=== PATIENT | male | born 1935 | race Hispanic/Latino ===

== ENCOUNTER 2018-12-20 20:36 | Inpatient (IN) | payer OTHER | END 2018-12-27 20:37 | LOC: EDH 20:36 → EDHIP 22:55 → 4BH 12-21 07:59 → 2DH 12-24 17:50 | PROC: 0TJB8ZZ Inspection of Bladder, Via Natural or Artificial Opening Endoscopic (ICD-10-PCS; principal; 2018-12-25 12:25) | DX: A41.9 Sepsis, unspecified organism (principal); I50.21 Acute systolic (congestive) heart failure; J18.1 Lobar pneumonia, unspecified organism; J96.01 Acute respiratory failure with hypoxia; J15.1 Pneumonia due to Pseudomonas; I48.91 Unspecified atrial fibrillation; I10 Essential (primary) hypertension; E11.9 Type 2 diabetes mellitus without complications; E78.5 Hyperlipidemia, unspecified; I25.10 Atherosclerotic heart disease of native coronary artery without angina pectoris; I11.0 Hypertensive heart disease with heart failure ==

== ENCOUNTER → 2019-09-20 | Outpatient (CLI) | payer OTHER ==
[~2019-09-20] MED LIST: ALBU2.5V2 IH; ALBU6.7H9 IH; ATOR20TA PO; CHLO118L4 TP; DULO60CA44 PO; FLUC100T8 PO; FLUT1DIS4 IH; GABA-529 PO; INSU100I21 SQ; INSU100V12 SQ; LEVA0.316 IH; LEVO500T2 PO; LOSA100T2 PO; METO50 PO; RANI150C4 PO; TAMS-1 PO; TIOT18CA3 IH
== END | disposition home or self-care (01) ==
LOC: SHCH 12:51
PROVIDERS: ATTEND Internal Medicine Cardiovascular Disease
DX: I50.42 Chronic combined systolic (congestive) and diastolic (congestive) heart failure (principal)
CPT/HCPCS: 93306

== ENCOUNTER 2021-02-16 08:06 | Inpatient (IN) | payer OTHER ==
[~2021-02-16] VITALS: Ht 172.7 cm; Wt 75.5 kg
[~2021-02-16 08:06] MED LIST changes: -DULO60CA44 PO; +DULO60CA45 PO
[2021-02-16 08:25] LABS: BASOPHILS % (AUTO) 0.2 % (0.0-5.0); EOSINOPHILS % (AUTO) 0.1 % (0.0-8.0); HEMATOCRIT 35.2 % (42-54); LYMPHOCYTES % (AUTO) 4.1 % (21.0-51.0); MEAN CORPUSCULAR HEMOGLOBIN 29.8 pg (27.0-33.0); MEAN CORPUSCULAR HGB CONC 34.9 g/dL (32.0-36.0); MEAN CORPUSCULAR VOLUME 85.2 fL (79-99); MONOCYTES % (AUTO) 3.3 % (3.0-13.0); NEUTROPHILS % (AUTO) 91.7 % (40.0-77.0); PLATELET COUNT (AUTO) 187 K/uL (130-400); RED BLOOD CELL COUNT(AUTO) 4.13 MIL/uL (4.50-6.20); RED CELL DISTRIBUTION WIDTH 14.7 % (11.0-15.5); WHITE BLOOD COUNT (AUTO) 12.9 K/uL (4.8-10.8)
[2021-02-16] MEDS ORDERED: 0.9%NACL 1000ML 1,000 ML IV ONE (08:27)
[2021-02-16] MEDS ORDERED: ONDANSETRON 4MG INJ ONE ×2 (08:27→22:26)
[2021-02-16 08:40] LABS: ALBUMIN 3.9 g/dL (3.5-5.0); BILIRUBIN,TOTAL 1.1 mg/dL (0.2-1.0); CREATININE 1.1 mg/dL (0.5-1.5); POTASSIUM 3.6 mmol/L (3.5-5.1); TOTAL PROTEIN, SERUM 7.9 g/dL (6.0-8.3)
[2021-02-16 08:42] LABS: INR 1.05 (0.85-1.15); PROTHROMBIN TIME 11.4 SEC (9.6-11.6)
[2021-02-16 08:43] LABS: PARTIAL THROMBOPLASTIN TIME 24.5 SEC (26.3-35.5)
[2021-02-16 09:06] LABS: APPEARANCE,URINE Clear (CLEAR); BILIRUBIN,URINE Negative (NEGATIVE); COLOR,URINE Yellow (YELLOW); GLUCOSE, URINE (UA) >=1000 mg/dL (NEGATIVE); KETONES,URINE Trace mg/dL (NEGATIVE); LEUKOCYTE ESTERASE ,URINE Negative (NEGATIVE); NITRATE,URINE Negative (NEGATIVE); OCCULT BLOOD,URINE Moderate (NEGATIVE); PH,URINE 7.5 (5.0-8.0); PROTEIN,URINE POS 1+ mg/dL (NEGATIVE); UROBILINOGEN,URINE 0.2 mg/dL (0.2-1.0)
[2021-02-16 09:13] LABS: AMPHET/METH SCREEN,URINE NEGATIVE (NEGATIVE); BARBITURATE SCREEN, URINE NEGATIVE (NEGATIVE); BENZODIAZEPINES SCREEN,URINE NEGATIVE (NEGATIVE); CANNABINOID SCREEN,URINE NEGATIVE (NEGATIVE); COCAINE SCREEN,URINE NEGATIVE (NEGATIVE); OPIATE SCREEN,URINE NEGATIVE (NEGATIVE); PHENCYCLIDINE SCREEN,URINE NEGATIVE (NEGATIVE)
[2021-02-16 09:26] LABS: WBC,URINE 0-1 /HPF (0-1)
[2021-02-16 09:27] LABS: BACTERIA,URINE Moderate /HPF (None Seen); SQUAMOUS EPITHELIAL CELL,UR 0-2 /HPF (0-2)
[2021-02-16] MEDS ORDERED: IOHEXOL-350 75 ML VIAL IV ONE (09:57)
[2021-02-16] MEDS ORDERED: PROCHLORPERAZINE 10MG/2ML INJ ONE (11:28)
[2021-02-16] MEDS ORDERED: FAMOTIDINE 20MG VIAL IV ONE (11:28)
[2021-02-16] MEDS ORDERED: ACETAMINOPHEN 650MG ER TAB PO PRN (14:30)
[2021-02-16] MEDS ORDERED: LABETALOL 20MG SYG IV PRN (14:30)
[2021-02-16] MEDS ORDERED: CEFTRIAXONE 1G VIAL IVP SCH (14:45)
[2021-02-16] MEDS ORDERED: ACETAMINOPHEN 325 MG TAB PO PRN (15:00)
[2021-02-16] MEDS ORDERED: CEFTRIAXONE 1G VIAL ONE (16:11)
[2021-02-16] MEDS ORDERED: ASPIRIN 81MG CHEW TAB ONE (16:11)
[2021-02-16] MEDS ORDERED: 0.9%NACL 50ML 50 ML IV ONE (16:13)
[2021-02-16] MEDS: ATORVASTATIN 40 MG TABLET PO SCH (21:00)
[2021-02-16] MEDS: FAMOTIDINE 20MG VIAL IV SCH (21:00)
[2021-02-16] MEDS ORDERED: ACETAMINOPHEN 650 MG/20.3 ML UDCUP ONE (22:40)
[2021-02-16] MEDS ORDERED: LABETALOL 20MG VIAL IV ONE (22:49)
[2021-02-16] MEDS ORDERED: GLUCAGON 1MG KIT 1 MG ML IM PRN (23:30)
[2021-02-16] MEDS ORDERED: DEXTROSE 50%-WATER 50 ML DISP.SYRIN IV PRN (23:30)
[2021-02-17 06:19] LABS: BASOPHILS % (AUTO) 0.1 % (0.0-5.0); EOSINOPHILS % (AUTO) 0.1 % (0.0-8.0); HEMATOCRIT 31.6 % (42-54); LYMPHOCYTES % (AUTO) 5.2 % (21.0-51.0); MEAN CORPUSCULAR HEMOGLOBIN 29.8 pg (27.0-33.0); MEAN CORPUSCULAR HGB CONC 34.5 g/dL (32.0-36.0); MEAN CORPUSCULAR VOLUME 86.3 fL (79-99); MONOCYTES % (AUTO) 5.7 % (3.0-13.0); NEUTROPHILS % (AUTO) 88.4 % (40.0-77.0); PLATELET COUNT (AUTO) 185 K/uL (130-400); RED BLOOD CELL COUNT(AUTO) 3.66 MIL/uL (4.50-6.20); WHITE BLOOD COUNT (AUTO) 16.3 K/uL (4.8-10.8)
[2021-02-17 06:28] LABS: INR 1.09 (0.85-1.15); PROTHROMBIN TIME 11.8 SEC (9.6-11.6)
[2021-02-17 06:45] LABS: ALBUMIN 3.4 g/dL (3.5-5.0); BILIRUBIN,TOTAL 1.3 mg/dL (0.2-1.0); POTASSIUM 3.7 mmol/L (3.5-5.1); TOTAL PROTEIN, SERUM 6.9 g/dL (6.0-8.3); TROPONIN I 0.09 ng/mL (0.00-0.06)
[2021-02-17 06:52] LABS: HEMOGLOBIN A1C 8.6 % (4.0-6.0)
[2021-02-17] MEDS: INSULIN HUMULIN R 100 UNIT/ML 3ML SQ SCH ×4 (07:30→21:00)
[2021-02-17] MEDS ORDERED: PANTOPRAZOLE 40 MG/VIAL IVP SCH (08:15)
[2021-02-17] MEDS ORDERED: PANTOPRAZOLE 40MG INJ 80 MG in 0.9%NACL 100ML 100 ML IVP SCH (08:15)
[2021-02-17] MEDS ORDERED: ASPIRIN 81MG CHEW TAB PO SCH (09:00)
[2021-02-17] MEDS: FAMOTIDINE 20MG VIAL IV SCH ×2 (09:00→21:00)
[2021-02-17] MEDS ORDERED: ASPIRIN 81MG CHEW TAB ONE (09:12)
[2021-02-17] MEDS ORDERED: PANTOPRAZOLE 40 MG/VIAL ONE ×2 (09:12→18:53)
[2021-02-17] MEDS: METOPROLOL TARTRATE 50 MG TAB PO SCH ×2 (10:30→21:00)
[2021-02-17] MEDS ORDERED: ATORVASTATIN 40 MG TABLET ONE (10:31)
[2021-02-17] MEDS ORDERED: TAMSULOSIN HCL 0.4 MG CAP.ER.24H ONE (10:31)
[2021-02-17] MEDS ORDERED: FUROSEMIDE 40MG VIAL ONE (10:31)
[2021-02-17] MEDS ORDERED: LISINOPRIL 5 MG TABLET ONE (10:31)
[2021-02-17] MEDS ORDERED: 0.9%NACL 50ML 50 ML IV ONE (14:15)
[2021-02-17] MEDS ORDERED: CEFTRIAXONE 1G VIAL ONE (14:15)
[2021-02-17 14:22] LABS: HEMATOCRIT 29.8 % (42-54)
[2021-02-17] MEDS ORDERED: IPRATROPIUM/ALBUTEROL SULFATE 3 ML SOLUTION IH ONE ×2 (15:52→18:59)
[2021-02-17] MEDS: IPRATROPIUM/ALBUTEROL SULFATE 3 ML SOLUTION IH PRN ×2 (15:55→19:17)
[2021-02-17] MEDS ORDERED: INSULIN HUMULIN R 100 UNIT/ML 3ML ONE (17:19)
[2021-02-17] MEDS ORDERED: 0.9%NACL 100ML 100 ML IV ONE (18:53)
[2021-02-17] MEDS: ATORVASTATIN 40 MG TABLET PO SCH (21:00)
[2021-02-17] MEDS ORDERED: FAMOTIDINE 20MG VIAL IV ONE (21:49)
[2021-02-17 22:37] LABS: HEMATOCRIT 30.9 % (42-54)
[2021-02-18] VITALS (9 sets, daily range): BP systolic 99–154; BP diastolic 53–92
[2021-02-18 04:49] LABS: BASOPHILS % (AUTO) 0.1 % (0.0-5.0); EOSINOPHILS % (AUTO) 0.6 % (0.0-8.0); HEMATOCRIT 28.8 % (42-54); LYMPHOCYTES % (AUTO) 5.1 % (21.0-51.0); MEAN CORPUSCULAR HEMOGLOBIN 30.3 pg (27.0-33.0); MEAN CORPUSCULAR HGB CONC 34.7 g/dL (32.0-36.0); MEAN CORPUSCULAR VOLUME 87.3 fL (79-99); NEUTROPHILS % (AUTO) 85.8 % (40.0-77.0); PLATELET COUNT (AUTO) 163 K/uL (130-400); RED CELL DISTRIBUTION WIDTH 14.6 % (11.0-15.5); WHITE BLOOD COUNT (AUTO) 15.1 K/uL (4.8-10.8)
[2021-02-18] MEDS ORDERED: PANTOPRAZOLE 40 MG/VIAL ONE (04:53)
[2021-02-18] MEDS ORDERED: 0.9%NACL 100ML 100 ML IV ONE (04:54)
[2021-02-18 05:07] LABS: CREATININE 1.1 mg/dL (0.5-1.5); POTASSIUM 3.2 mmol/L (3.5-5.1)
[2021-02-18 05:18] LABS: BILIRUBIN,TOTAL 1.9 mg/dL (0.2-1.0); TOTAL PROTEIN, SERUM 6.5 g/dL (6.0-8.3); TROPONIN I 0.05 ng/mL (0.00-0.06)
[2021-02-18 05:52] LABS: INR 1.05 (0.85-1.15); PROTHROMBIN TIME 11.4 SEC (9.6-11.6)
[2021-02-18 05:53] LABS: PARTIAL THROMBOPLASTIN TIME 22.7 SEC (26.3-35.5)
[2021-02-18] MEDS: INSULIN HUMULIN R 100 UNIT/ML 3ML SQ SCH ×4 (07:30→21:24)
[2021-02-18] MEDS: METOPROLOL TARTRATE 50 MG TAB PO SCH ×2 (09:00→21:23)
[2021-02-18] MEDS: FAMOTIDINE 20MG VIAL IV SCH ×2 (09:00→21:00)
[2021-02-18] MEDS: TAMSULOSIN HCL 0.4 MG CAP.ER.24H PO SCH (09:00)
[2021-02-18] MEDS ORDERED: ASPIRIN 81MG CHEW TAB ONE (09:08)
[2021-02-18] MEDS ORDERED: METOPROLOL TARTRATE 50 MG TAB ONE (09:08)
[2021-02-18] MEDS ORDERED: TAMSULOSIN HCL 0.4 MG CAP.ER.24H ONE (09:09)
[2021-02-18] MEDS ORDERED: FAMOTIDINE 20MG VIAL IV ONE (09:09)
[2021-02-18] MEDS ORDERED: INSULIN HUMULIN R 100 UNIT/ML 3ML ONE (09:10)
[2021-02-18] MEDS: ZOSYN 3.375GM+NS 50ML 50 ML IV SCH ×2 (10:45→18:45)
[2021-02-18] MEDS: 0.9%NACL 1000ML 1,000 ML IV SCH ×2 (13:30→23:18)
[2021-02-18] MEDS: FUROSEMIDE 20 MG TABLET PO SCH (14:00)
[2021-02-18] MEDS ORDERED: ZOSYN 3.375GM+NS 50ML 50 ML IV ONE (14:10)
[2021-02-18] MEDS ORDERED: 0.9%NACL 1000ML 1,000 ML IV ONE (16:39)
[2021-02-18] MEDS ORDERED: FUROSEMIDE 40 MG TABLET ONE (16:40)
[2021-02-18] MEDS: ATORVASTATIN 40 MG TABLET PO SCH (21:23)
[2021-02-19] VITALS (15 sets, daily range): BP systolic 102–141; BP diastolic 50–91
[2021-02-19] MEDS: ZOSYN 3.375GM+NS 50ML 50 ML IV SCH ×3 (03:26→18:15)
[2021-02-19 04:04] LABS: HEMATOCRIT 30.9 % (42-54)
[2021-02-19 04:39] LABS: BASOPHILS % (AUTO) 0.1 % (0.0-5.0); EOSINOPHILS % (AUTO) 2.1 % (0.0-8.0); LYMPHOCYTES % (AUTO) 7.8 % (21.0-51.0); MEAN CORPUSCULAR HGB CONC 34.2 g/dL (32.0-36.0); MEAN CORPUSCULAR VOLUME 87.7 fL (79-99); MONOCYTES % (AUTO) 8.2 % (3.0-13.0); NEUTROPHILS % (AUTO) 81.4 % (40.0-77.0); PLATELET COUNT (AUTO) 192 K/uL (130-400); RED BLOOD CELL COUNT(AUTO) 3.57 MIL/uL (4.50-6.20); RED CELL DISTRIBUTION WIDTH 14.5 % (11.0-15.5); WHITE BLOOD COUNT (AUTO) 13.5 K/uL (4.8-10.8)
[2021-02-19 04:43] LABS: MAGNESIUM 2.3 mg/dL (1.80-2.40); POTASSIUM 3.5 mmol/L (3.5-5.1)
[2021-02-19] MEDS ORDERED: LIDOCAINE HCL-MPF 1% 2ML VIAL IJ PRN (05:00)
[2021-02-19] MEDS ORDERED: POTASSIUM CHLORIDE 20MEQ/100ML 100 ML IV PRN (05:00)
[2021-02-19] MEDS: INSULIN HUMULIN R 100 UNIT/ML 3ML SQ SCH ×4 (05:26→20:51)
[2021-02-19] MEDS: 0.9%NACL 1000ML 1,000 ML IV SCH (05:52)
[2021-02-19] MEDS: IPRATROPIUM/ALBUTEROL SULFATE 3 ML SOLUTION IH PRN (07:04)
[2021-02-19] MEDS: TAMSULOSIN HCL 0.4 MG CAP.ER.24H PO SCH (08:40)
[2021-02-19] MEDS: METOPROLOL TARTRATE 50 MG TAB PO SCH ×2 (08:40→20:53)
[2021-02-19] MEDS: FUROSEMIDE 20 MG TABLET PO SCH (08:41)
[2021-02-19] MEDS: POTASSIUM CHLORIDE 10% ELIXIR 20 MEQ/15 ML UDCUP PO PRN (08:41)
[2021-02-19] MEDS: PANTOPRAZOLE 40 MG/VIAL IVP SCH ×2 (14:12→20:51)
[2021-02-19] MEDS ORDERED: 0.9%NACL 1000ML 1,000 ML IV ONE (18:21)
[2021-02-19] MEDS: ATORVASTATIN 40 MG TABLET PO SCH (20:51)
[2021-02-20] VITALS (11 sets, daily range): BP systolic 107–151; BP diastolic 50–88
[2021-02-20] MEDS: ZOSYN 3.375GM+NS 50ML 50 ML IV SCH ×3 (02:09→18:15)
[2021-02-20 05:36] LABS: BASOPHILS % (AUTO) 0.3 % (0.0-5.0); EOSINOPHILS % (AUTO) 3.5 % (0.0-8.0); HEMATOCRIT 30.8 % (42-54); LYMPHOCYTES % (AUTO) 11.6 % (21.0-51.0); MEAN CORPUSCULAR HEMOGLOBIN 29.5 pg (27.0-33.0); MEAN CORPUSCULAR HGB CONC 33.8 g/dL (32.0-36.0); MEAN CORPUSCULAR VOLUME 87.5 fL (79-99); MONOCYTES % (AUTO) 9.2 % (3.0-13.0); PLATELET COUNT (AUTO) 180 K/uL (130-400); RED BLOOD CELL COUNT(AUTO) 3.52 MIL/uL (4.50-6.20); RED CELL DISTRIBUTION WIDTH 14.3 % (11.0-15.5)
[2021-02-20 05:49] LABS: POTASSIUM 3.2 mmol/L (3.5-5.1)
[2021-02-20 05:54] LABS: CREATININE 0.9 mg/dL (0.5-1.5)
[2021-02-20] MEDS: INSULIN HUMULIN R 100 UNIT/ML 3ML SQ SCH ×4 (06:01→21:14)
[2021-02-20] MEDS: POTASSIUM CHLORIDE 10% ELIXIR 20 MEQ/15 ML UDCUP PO PRN (06:05)
[2021-02-20] MEDS ORDERED: POTASSIUM CHLORIDE 10% ELIXIR 20 MEQ/15 ML UDCUP PO SCH (08:00)
[2021-02-20] MEDS: TAMSULOSIN HCL 0.4 MG CAP.ER.24H PO SCH (08:09)
[2021-02-20] MEDS: METOPROLOL TARTRATE 50 MG TAB PO SCH ×2 (08:09→21:11)
[2021-02-20] MEDS: FUROSEMIDE 20 MG TABLET PO SCH (08:09)
[2021-02-20] MEDS: PANTOPRAZOLE 40 MG/VIAL IVP SCH ×2 (08:10→21:10)
[2021-02-20] MEDS: ATORVASTATIN 40 MG TABLET PO SCH (21:10)
[2021-02-20] MEDS: IPRATROPIUM/ALBUTEROL SULFATE 3 ML SOLUTION IH PRN (23:22)
[2021-02-21] MEDS: ZOSYN 3.375GM+NS 50ML 50 ML IV SCH ×3 (02:59→17:46)
[2021-02-21 03:33] VITALS: BP 127/63
[2021-02-21] MEDS: INSULIN HUMULIN R 100 UNIT/ML 3ML SQ SCH ×4 (06:37→20:27)
[2021-02-21 06:41] LABS: BASOPHILS % (AUTO) 0.3 % (0.0-5.0); EOSINOPHILS % (AUTO) 2.9 % (0.0-8.0); HEMATOCRIT 31.6 % (42-54); MEAN CORPUSCULAR HEMOGLOBIN 29.1 pg (27.0-33.0); MEAN CORPUSCULAR HGB CONC 33.9 g/dL (32.0-36.0); MEAN CORPUSCULAR VOLUME 85.9 fL (79-99); MONOCYTES % (AUTO) 9.1 % (3.0-13.0); NEUTROPHILS % (AUTO) 73.3 % (40.0-77.0); PLATELET COUNT (AUTO) 185 K/uL (130-400); RED BLOOD CELL COUNT(AUTO) 3.68 MIL/uL (4.50-6.20); RED CELL DISTRIBUTION WIDTH 14.1 % (11.0-15.5)
[2021-02-21 06:50] LABS: CREATININE 0.8 mg/dL (0.5-1.5); MAGNESIUM 1.9 mg/dL (1.80-2.40); POTASSIUM 3.4 mmol/L (3.5-5.1)
[2021-02-21 07:20] VITALS: BP 136/106
[2021-02-21] MEDS: TAMSULOSIN HCL 0.4 MG CAP.ER.24H PO SCH (08:20)
[2021-02-21] MEDS: FUROSEMIDE 20 MG TABLET PO SCH (08:20)
[2021-02-21] MEDS: METOPROLOL TARTRATE 50 MG TAB PO SCH ×2 (08:20→20:19)
[2021-02-21] MEDS: PANTOPRAZOLE 40 MG/VIAL IVP SCH ×2 (08:21→20:19)
[2021-02-21] MEDS: POTASSIUM CHLORIDE 10% ELIXIR 20 MEQ/15 ML UDCUP PO PRN ×2 (09:00→12:26)
[2021-02-21 11:52] VITALS: BP 158/101
[2021-02-21 16:00] VITALS: BP 145/77
[2021-02-21] MEDS: ATORVASTATIN 40 MG TABLET PO SCH (20:19)
[2021-02-21 20:26] VITALS: BP 136/64
[2021-02-21 23:23] VITALS: BP 137/63
[2021-02-22] MEDS: ZOSYN 3.375GM+NS 50ML 50 ML IV SCH ×3 (03:05→18:32)
[2021-02-22 04:00] VITALS: BP 150/76
[2021-02-22 06:38] LABS: POTASSIUM 3.6 mmol/L (3.5-5.1)
[2021-02-22] MEDS: INSULIN HUMULIN R 100 UNIT/ML 3ML SQ SCH ×4 (07:30→19:32)
[2021-02-22 08:00] VITALS: BP 141/81
[2021-02-22] MEDS: TAMSULOSIN HCL 0.4 MG CAP.ER.24H PO SCH (10:25)
[2021-02-22] MEDS: PANTOPRAZOLE 40 MG/VIAL IVP SCH ×2 (10:25→19:48)
[2021-02-22] MEDS: FUROSEMIDE 20 MG TABLET PO SCH (10:26)
[2021-02-22] MEDS: METOPROLOL TARTRATE 50 MG TAB PO SCH ×2 (10:26→19:30)
[2021-02-22 12:00] VITALS: BP 129/74
[2021-02-22 16:00] VITALS: BP 141/87
[2021-02-22] MEDS: ATORVASTATIN 40 MG TABLET PO SCH (19:30)
[2021-02-22 19:53] VITALS: BP 134/69
[2021-02-22 23:24] VITALS: BP 109/65
[2021-02-23] MEDS: ZOSYN 3.375GM+NS 50ML 50 ML IV SCH ×3 (03:28→18:51)
[2021-02-23 03:47] VITALS: BP 138/71
[2021-02-23 05:12] LABS: BASOPHILS % (AUTO) 0.4 % (0.0-5.0); EOSINOPHILS % (AUTO) 3.9 % (0.0-8.0); HEMATOCRIT 32.4 % (42-54); LYMPHOCYTES % (AUTO) 17.7 % (21.0-51.0); MEAN CORPUSCULAR HEMOGLOBIN 29.7 pg (27.0-33.0); MEAN CORPUSCULAR HGB CONC 34.9 g/dL (32.0-36.0); MONOCYTES % (AUTO) 8.4 % (3.0-13.0); PLATELET COUNT (AUTO) 219 K/uL (130-400); RED BLOOD CELL COUNT(AUTO) 3.81 MIL/uL (4.50-6.20); RED CELL DISTRIBUTION WIDTH 14.2 % (11.0-15.5)
[2021-02-23 05:31] LABS: ALBUMIN 2.9 g/dL (3.5-5.0); POTASSIUM 3.4 mmol/L (3.5-5.1); TOTAL PROTEIN, SERUM 6.7 g/dL (6.0-8.3)
[2021-02-23] MEDS: INSULIN HUMULIN R 100 UNIT/ML 3ML SQ SCH ×4 (05:38→21:00)
[2021-02-23] MEDS: POTASSIUM CHLORIDE 10% ELIXIR 20 MEQ/15 ML UDCUP PO PRN ×2 (06:14→08:59)
[2021-02-23 08:00] VITALS: BP_SYST 129; BP_SYST 133; BP_DIAS 78; BP_DIAS 82
[2021-02-23] MEDS: FUROSEMIDE 20 MG TABLET PO SCH (08:47)
[2021-02-23] MEDS: TAMSULOSIN HCL 0.4 MG CAP.ER.24H PO SCH (08:48)
[2021-02-23] MEDS: PANTOPRAZOLE 40 MG/VIAL IVP SCH ×2 (08:48→21:43)
[2021-02-23] MEDS: METOPROLOL TARTRATE 50 MG TAB PO SCH ×2 (08:48→21:48)
[2021-02-23 12:17] VITALS: BP 116/67
[2021-02-23 16:08] VITALS: BP 136/74
[2021-02-23] MEDS ORDERED: LABETALOL 20MG SYG IV PRN (19:15)
[2021-02-23 20:00] VITALS: BP 140/76
[2021-02-23] MEDS: ATORVASTATIN 40 MG TABLET PO SCH (21:46)
[2021-02-24 00:30] VITALS: BP 123/63
[2021-02-24] MEDS: ZOSYN 3.375GM+NS 50ML 50 ML IV SCH ×3 (02:56→18:37)
[2021-02-24] MEDS ORDERED: 0.9%NACL 50ML 50 ML IV ONE (02:58)
[2021-02-24 04:41] VITALS: BP 141/71
[2021-02-24 04:50] LABS: BASOPHILS % (AUTO) 0.3 % (0.0-5.0); EOSINOPHILS % (AUTO) 2.3 % (0.0-8.0); LYMPHOCYTES % (AUTO) 13.4 % (21.0-51.0); MEAN CORPUSCULAR HEMOGLOBIN 29.6 pg (27.0-33.0); MEAN CORPUSCULAR VOLUME 84.7 fL (79-99); MONOCYTES % (AUTO) 7.6 % (3.0-13.0); NEUTROPHILS % (AUTO) 75.7 % (40.0-77.0); PLATELET COUNT (AUTO) 228 K/uL (130-400); RED BLOOD CELL COUNT(AUTO) 3.78 MIL/uL (4.50-6.20); RED CELL DISTRIBUTION WIDTH 14.3 % (11.0-15.5); WHITE BLOOD COUNT (AUTO) 12.1 K/uL (4.8-10.8)
[2021-02-24 05:08] LABS: ALBUMIN 2.9 g/dL (3.5-5.0); BILIRUBIN,TOTAL 1.8 mg/dL (0.2-1.0); CREATININE 1.1 mg/dL (0.5-1.5); POTASSIUM 3.9 mmol/L (3.5-5.1); TOTAL PROTEIN, SERUM 6.6 g/dL (6.0-8.3)
[2021-02-24] MEDS: INSULIN HUMULIN R 100 UNIT/ML 3ML SQ SCH ×4 (06:58→21:04)
[2021-02-24 08:00] VITALS: BP 114/60
[2021-02-24] MEDS: PANTOPRAZOLE 40 MG/VIAL IVP SCH ×2 (11:02→20:57)
[2021-02-24] MEDS: TAMSULOSIN HCL 0.4 MG CAP.ER.24H PO SCH (11:02)
[2021-02-24] MEDS: FUROSEMIDE 20 MG TABLET PO SCH (11:02)
[2021-02-24] MEDS: METOPROLOL TARTRATE 50 MG TAB PO SCH ×2 (11:03→20:57)
[2021-02-24 11:58] VITALS: BP 148/84
[2021-02-24 16:00] VITALS: BP 113/62
[2021-02-24 19:42] VITALS: BP 109/61
[2021-02-24] MEDS: ATORVASTATIN 40 MG TABLET PO SCH (20:57)
[2021-02-24] MEDS: INSULIN GLARGINE 100 UNITS/ML 10 ML VIAL SQ SCH (21:03)
[2021-02-25] VITALS (7 sets, daily range): BP systolic 107–149; BP diastolic 62–90
[2021-02-25] MEDS: ZOSYN 3.375GM+NS 50ML 50 ML IV SCH ×3 (03:26→18:31)
[2021-02-25 05:19] LABS: BASOPHILS % (AUTO) 0.3 % (0.0-5.0); EOSINOPHILS % (AUTO) 2.3 % (0.0-8.0); HEMATOCRIT 32.6 % (42-54); LYMPHOCYTES % (AUTO) 17.2 % (21.0-51.0); MEAN CORPUSCULAR HEMOGLOBIN 29.2 pg (27.0-33.0); MEAN CORPUSCULAR HGB CONC 34.4 g/dL (32.0-36.0); MEAN CORPUSCULAR VOLUME 84.9 fL (79-99); MONOCYTES % (AUTO) 8.4 % (3.0-13.0); NEUTROPHILS % (AUTO) 71.2 % (40.0-77.0); PLATELET COUNT (AUTO) 248 K/uL (130-400); RED BLOOD CELL COUNT(AUTO) 3.84 MIL/uL (4.50-6.20); RED CELL DISTRIBUTION WIDTH 14.3 % (11.0-15.5); WHITE BLOOD COUNT (AUTO) 10.4 K/uL (4.8-10.8)
[2021-02-25 05:34] LABS: BILIRUBIN,TOTAL 1.6 mg/dL (0.2-1.0); POTASSIUM 3.7 mmol/L (3.5-5.1); TOTAL PROTEIN, SERUM 6.8 g/dL (6.0-8.3)
[2021-02-25] MEDS: INSULIN HUMULIN R 100 UNIT/ML 3ML SQ SCH ×4 (07:15→20:58)
[2021-02-25] MEDS: FUROSEMIDE 20 MG TABLET PO SCH (10:35)
[2021-02-25] MEDS: PANTOPRAZOLE 40 MG/VIAL IVP SCH ×2 (10:35→20:34)
[2021-02-25] MEDS: TAMSULOSIN HCL 0.4 MG CAP.ER.24H PO SCH (10:35)
[2021-02-25] MEDS: METOPROLOL TARTRATE 50 MG TAB PO SCH ×2 (10:35→20:35)
[2021-02-25] MEDS: ATORVASTATIN 40 MG TABLET PO SCH (20:35)
[2021-02-25] MEDS: INSULIN GLARGINE 100 UNITS/ML 10 ML VIAL SQ SCH (20:57)
[2021-02-25] MEDS: POTASSIUM CHLORIDE 10% ELIXIR 20 MEQ/15 ML UDCUP PO PRN (22:24)
[2021-02-26] MEDS: ZOSYN 3.375GM+NS 50ML 50 ML IV SCH ×3 (03:07→20:23)
[2021-02-26 04:34] VITALS: BP 150/87
[2021-02-26] MEDS: INSULIN HUMULIN R 100 UNIT/ML 3ML SQ SCH ×5 (06:07→22:12)
[2021-02-26 08:41] VITALS: BP 130/67
[2021-02-26] MEDS: TAMSULOSIN HCL 0.4 MG CAP.ER.24H PO SCH (10:03)
[2021-02-26] MEDS: METOPROLOL TARTRATE 50 MG TAB PO SCH ×2 (10:03→20:24)
[2021-02-26] MEDS: MEGESTROL 400 MG/10 ML UDCUP PO SCH (10:03)
[2021-02-26] MEDS: PANTOPRAZOLE 40 MG/VIAL IVP SCH ×2 (10:03→20:24)
[2021-02-26] MEDS: FUROSEMIDE 20 MG TABLET PO SCH (10:04)
[2021-02-26 12:07] VITALS: BP 140/77
[2021-02-26] MEDS ORDERED: LISINOPRIL 10 MG TABLET PO SCH (15:45)
[2021-02-26 16:51] VITALS: BP 113/66
[2021-02-26 20:00] VITALS: BP 128/72
[2021-02-26] MEDS: ATORVASTATIN 40 MG TABLET PO SCH (20:24)
[2021-02-26] MEDS: INSULIN GLARGINE 100 UNITS/ML 10 ML VIAL SQ SCH (22:13)
[2021-02-26 23:12] VITALS: BP 95/52
[2021-02-27] MEDS: ZOSYN 3.375GM+NS 50ML 50 ML IV SCH ×3 (02:26→20:31)
[2021-02-27 04:42] VITALS: BP 102/62
[2021-02-27 05:28] LABS: HEMATOCRIT 34.8 % (42-54); MEAN CORPUSCULAR HEMOGLOBIN 29.5 pg (27.0-33.0); MEAN CORPUSCULAR HGB CONC 34.8 g/dL (32.0-36.0); MEAN CORPUSCULAR VOLUME 84.9 fL (79-99); RED BLOOD CELL COUNT(AUTO) 4.1 MIL/uL (4.50-6.20); RED CELL DISTRIBUTION WIDTH 14.5 % (11.0-15.5); WHITE BLOOD COUNT (AUTO) 12.8 K/uL (4.8-10.8)
[2021-02-27 05:52] LABS: CREATININE 1.1 mg/dL (0.5-1.5); POTASSIUM 3.9 mmol/L (3.5-5.1)
[2021-02-27] MEDS: INSULIN HUMULIN R 100 UNIT/ML 3ML SQ SCH ×7 (05:54→20:32)
[2021-02-27 08:21] VITALS: BP 99/70
[2021-02-27] MEDS: METOPROLOL TARTRATE 50 MG TAB PO SCH ×2 (09:00→19:25)
[2021-02-27] MEDS: FUROSEMIDE 20 MG TABLET PO SCH (09:00)
[2021-02-27] MEDS: PANTOPRAZOLE 40 MG/VIAL IVP SCH ×2 (09:09→20:31)
[2021-02-27] MEDS: MEGESTROL 400 MG/10 ML UDCUP PO SCH (09:09)
[2021-02-27] MEDS: TAMSULOSIN HCL 0.4 MG CAP.ER.24H PO SCH (09:09)
[2021-02-27 12:36] VITALS: BP 105/57
[2021-02-27 16:30] VITALS: BP 90/54
[2021-02-27 20:19] VITALS: BP 95/58
[2021-02-27] MEDS: ATORVASTATIN 40 MG TABLET PO SCH (20:31)
[2021-02-27] MEDS: INSULIN GLARGINE 100 UNITS/ML 10 ML VIAL SQ SCH (20:33)
[2021-02-28] VITALS (7 sets, daily range): BP systolic 96–131; BP diastolic 48–67
[2021-02-28] MEDS: ZOSYN 3.375GM+NS 50ML 50 ML IV SCH ×3 (03:12→18:34)
[2021-02-28] MEDS: INSULIN HUMULIN R 100 UNIT/ML 3ML SQ SCH ×7 (05:25→21:23)
[2021-02-28] MEDS: TAMSULOSIN HCL 0.4 MG CAP.ER.24H PO SCH (09:22)
[2021-02-28] MEDS: METOPROLOL TARTRATE 50 MG TAB PO SCH ×2 (09:22→21:14)
[2021-02-28] MEDS: PANTOPRAZOLE 40 MG/VIAL IVP SCH ×2 (09:22→21:14)
[2021-02-28] MEDS: MEGESTROL 400 MG/10 ML UDCUP PO SCH (09:23)
[2021-02-28] MEDS: FUROSEMIDE 20 MG TABLET PO SCH (09:23)
[2021-02-28] MEDS: ATORVASTATIN 40 MG TABLET PO SCH (21:14)
[2021-02-28] MEDS: INSULIN GLARGINE 100 UNITS/ML 10 ML VIAL SQ SCH (21:24)
[2021-03-01 03:00] VITALS: BP 126/79
[2021-03-01] MEDS: ZOSYN 3.375GM+NS 50ML 50 ML IV SCH ×2 (03:00→09:13)
[2021-03-01] MEDS: INSULIN HUMULIN R 100 UNIT/ML 3ML SQ SCH ×4 (07:03→11:35)
[2021-03-01 07:09] VITALS: BP 119/66
[2021-03-01] MEDS: PANTOPRAZOLE 40 MG/VIAL IVP SCH (09:11)
[2021-03-01] MEDS: FUROSEMIDE 20 MG TABLET PO SCH (09:12)
[2021-03-01] MEDS: TAMSULOSIN HCL 0.4 MG CAP.ER.24H PO SCH (09:12)
[2021-03-01] MEDS: MEGESTROL 400 MG/10 ML UDCUP PO SCH (09:13)
[2021-03-01] MEDS: METOPROLOL TARTRATE 50 MG TAB PO SCH (09:13)
[2021-03-01 10:40] VITALS: BP 103/65
== END 2021-03-01 13:58 | DRG 64 ==
LOC: EDH 08:06 → EDHIP 12:49 → 2DH 02-17 14:07 → EDHIP 02-17 14:07 → 2DH 02-18 16:21 → 4BH 02-20 17:49
PROVIDERS: ADMIT Family Medicine; ATTEND Family Medicine
DX: I63.442 Cerebral infarction due to embolism of left cerebellar artery (principal); I61.5 Nontraumatic intracerebral hemorrhage, intraventricular; N39.0 Urinary tract infection, site not specified; K92.2 Gastrointestinal hemorrhage, unspecified; I50.42 Chronic combined systolic (congestive) and diastolic (congestive) heart failure; E22.2 Syndrome of inappropriate secretion of antidiuretic hormone; D68.59 Other primary thrombophilia; G81.91 Hemiplegia, unspecified affecting right dominant side; I48.20 Chronic atrial fibrillation, unspecified; E87.6 Hypokalemia; Z66 Do not resuscitate; I48.91 Unspecified atrial fibrillation; E87.8 Other disorders of electrolyte and fluid balance, not elsewhere classified; J44.9 Chronic obstructive pulmonary disease, unspecified; D50.0 Iron deficiency anemia secondary to blood loss (chronic); Z20.822 Contact with and (suspected) exposure to COVID-19; E11.649 Type 2 diabetes mellitus with hypoglycemia without coma; E78.2 Mixed hyperlipidemia; R29.707 NIHSS score 7; H53.461 Homonymous bilateral field defects, right side; I11.0 Hypertensive heart disease with heart failure; F32.9 Major depressive disorder, single episode, unspecified; N40.1 Benign prostatic hyperplasia with lower urinary tract symptoms; N39.498 Other specified urinary incontinence; B96.5 Pseudomonas (aeruginosa) (mallei) (pseudomallei) as the cause of diseases classified elsewhere; Z79.01 Long term (current) use of anticoagulants; Z87.01 Personal history of pneumonia (recurrent); Z91.120 Patient's intentional underdosing of medication regimen due to financial hardship; Z91.14 Patient's other noncompliance with medication regimen
CPT/HCPCS: 36415; 70450; 70496; 70498; 70551; 71045; 80048; 80053; 80061; 80305; 81001; 82270; 82550; 82948; 83036; 83735; 83874; 84145; 84484; 85014; 85018; 85025; 85027; 85610; 85730; 87077; 87088; 87186; 87426; 92526; 92610; 93005; 93306; 93356; 93971; 94640; 94664; 97039; C9113; G0378; J0696; J0780; J1815; J1940; J2405; J2543; J3490; J7030; Q9967; U0003

== ENCOUNTER → 2021-03-16 | Outpatient (CLI) | payer OTHER ==
[~2021-03-16] MED LIST changes: +DULO60CA44 PO; -DULO60CA45 PO
== END | disposition home or self-care (01) ==
LOC: RAH 13:09
PROVIDERS: ATTEND Internal Medicine
DX: I63.9 Cerebral infarction, unspecified (principal); G93.89 Other specified disorders of brain
CPT/HCPCS: 70450

== ENCOUNTER → 2021-04-27 | Outpatient (CLI) | payer OTHER | END | disposition home or self-care (01) | LOC: RAH 14:06 | PROVIDERS: ATTEND Psychiatry & Neurology Neurology | DX: I69.359 Hemiplegia and hemiparesis following cerebral infarction affecting unspecified side (principal); G31.89 Other specified degenerative diseases of nervous system | CPT/HCPCS: 70450 ==

== ENCOUNTER → 2021-06-10 | Outpatient (CLI) | payer OTHER | END | disposition home or self-care (01) | LOC: RAH 09:58 | PROVIDERS: ATTEND Family Medicine | DX: N40.0 Benign prostatic hyperplasia without lower urinary tract symptoms (principal); N39.0 Urinary tract infection, site not specified; Z87.438 Personal history of other diseases of male genital organs | CPT/HCPCS: 76700; 76856 ==

== ENCOUNTER → 2022-11-29 | Outpatient (CLI) | payer OTHER ==
[~2022-11-29] MED LIST changes: +ALBU6.7H14 IH; -ALBU6.7H9 IH; -DULO60CA44 PO; +DULO60CA45 PO; +FLUC100T12 PO; -FLUC100T8 PO
== END | disposition home or self-care (01) ==
LOC: RAH 15:16
PROVIDERS: ATTEND Internal Medicine Cardiovascular Disease
DX: G31.89 Other specified degenerative diseases of nervous system (principal); Z79.01 Long term (current) use of anticoagulants
CPT/HCPCS: 70450

== ENCOUNTER 2023-07-22 23:41 | Inpatient (IN) | payer OTHER ==
[~2023-07-22] VITALS: Ht 175.3 cm; Wt 69.1 kg
[~2023-07-22 23:41] MED LIST changes: -INSU100I21 SQ; +INSU100I22 SQ; -LOSA100T2 PO; +LOSA100T3 PO
[2023-07-23] VITALS (15 sets, daily range): BP systolic 93–123; BP diastolic 62–74; PULSE 60–97; RESP 16–20; O2SAT 97–100
[2023-07-23] MEDS ORDERED: CEFTRIAXONE 2GM VIAL IVPB ONE (00:30)
[2023-07-23] MEDS ORDERED: 0.9%NACL 1000ML 1,000 ML IV SCH (00:30)
[2023-07-23 00:40] LABS: BASOPHILS # (AUTO) 0.02 K/uL (0.00-0.20); BASOPHILS % (AUTO) 0.2 % (0.0-5.0); EOSINOPHILS # (AUTO) 0.02 K/uL (0.00-0.70); EOSINOPHILS % (AUTO) 0.2 % (0.0-8.0); HEMATOCRIT 28.5 % (42-54); IMMATURE GRANULOCYTE ABSOLUTE 0.05 K/uL (0-1); LYMPHOCYTES # (AUTO) 0.7 K/uL (1.0-4.8); LYMPHOCYTES % (AUTO) 5.9 % (21.0-51.0); MEAN CORPUSCULAR HEMOGLOBIN 27.9 pg (27.0-33.0); MEAN CORPUSCULAR HGB CONC 31.9 g/dL (32.0-36.0); MEAN CORPUSCULAR VOLUME 87.4 fL (79-99); MONOCYTES # (AUTO) 0.5 K/uL (0.1-1.0); MONOCYTES % (AUTO) 4.4 % (3.0-13.0); NEUTROPHILS # (AUTO) 10.6 K/uL (1.8-7.7); NEUTROPHILS % (AUTO) 88.9 % (40.0-77.0); PLATELET COUNT (AUTO) 128 K/uL (130-400); RED BLOOD CELL COUNT(AUTO) 3.26 MIL/uL (4.50-6.20); WHITE BLOOD COUNT (AUTO) 11.9 K/uL (4.8-10.8)
[2023-07-23 00:53] LABS: WBC MORPHOLOGY CONSISTENT W/DIFF
[2023-07-23 00:55] LABS: ALBUMIN 1.6 g/dL (3.5-5.0); ASPARTATE AMINOTRANSFERASE 19 U/L (10-37); BILIRUBIN,TOTAL 1.6 mg/dL (0.2-1.0); CARBON DIOXIDE 31 mmol/L (21-32); CHLORIDE 98 mmol/L (101-111); CREATININE 0.6 mg/dL (0.5-1.5); GLOMERULAR FILTR. RATE CALC 95 mL/min (>90); GLUCOSE,RANDOM 167 mg/dL (70-105); SODIUM SERUM 134 mmol/L (136-145); TOTAL PROTEIN, SERUM 5.5 g/dL (6.0-8.3); UREA NITROGEN, BLOOD 11 mg/dL (7-18)
[2023-07-23 01:02] LABS: ALANINE AMINOTRANSFERASE < 6 U/L (12-78)
[2023-07-23] MEDS ORDERED: POTASSIUM CHLORIDE 10MEQ/100ML 100 ML IV SCH (01:30)
[2023-07-23 01:55] LABS: SARS-CoV-2, RNA, NAAT POSITIVE SARS CoV-2 (NEGATIVE)
[2023-07-23 01:57] LABS: INFLUENZA TYPE A Negative For Type A (NEGATIVE); INFLUENZA TYPE B Negative For Type B (NEGATIVE)
[2023-07-23] MEDS ORDERED: ACETAMINOPHEN 325 MG TAB PO PRN ×2 (02:00)
[2023-07-23] MEDS ORDERED: GUAIFENESIN-DM 200/20 MG 10 ML PO PRN (02:00)
[2023-07-23] MEDS ORDERED: ONDANSETRON 4MG INJ IV PRN (02:00)
[2023-07-23] MEDS ORDERED: MAGNESIUM 2GM PREMIX 50ML 50 ML IV PRN (02:30)
[2023-07-23] MEDS ORDERED: POTASSIUM CHLORIDE 20MEQ/100ML 100 ML IV PRN ×3 (02:30→22:30)
[2023-07-23] MEDS ORDERED: MELA1TAB15 PO (03:24)
[2023-07-23] MEDS ORDERED: FAMO20TA8 PO (03:25)
[2023-07-23] MEDS ORDERED: PANT40TA54 PO (03:26)
[2023-07-23] MEDS ORDERED: FURO40TA5 PO (03:27)
[2023-07-23] MEDS ORDERED: APIX5TAB PO (03:27)
[2023-07-23] MEDS ORDERED: INSU100V52 SQ (03:28)
[2023-07-23] MEDS: ALBUTEROL 0.083% 2.5 MG/3 ML INH IH SCH ×4 (06:46→23:54)
[2023-07-23 07:30] LABS: HEMATOCRIT 28.2 % (42-54); MEAN CORPUSCULAR HEMOGLOBIN 27.8 pg (27.0-33.0); MEAN CORPUSCULAR HGB CONC 31.9 g/dL (32.0-36.0); RED BLOOD CELL COUNT(AUTO) 3.24 MIL/uL (4.50-6.20); WHITE BLOOD COUNT (AUTO) 9.1 K/uL (4.8-10.8)
[2023-07-23 08:08] LABS: ALBUMIN 1.5 g/dL (3.5-5.0); BILIRUBIN,TOTAL 1.1 mg/dL (0.2-1.0); CREATININE 0.6 mg/dL (0.5-1.5); MAGNESIUM 1.5 mg/dL (1.80-2.40); POTASSIUM 3.2 mmol/L (3.5-5.1); TOTAL PROTEIN, SERUM 5.4 g/dL (6.0-8.3)
[2023-07-23 08:21] LABS: % IRON SATURATION 13.3 % (30-44)
[2023-07-23 08:30] LABS: CRP QUANTITATIVE 163.4 mg/L (0.00-9.0)
[2023-07-23] MEDS: FAMOTIDINE 20MG TAB PO SCH ×2 (08:45→21:26)
[2023-07-23] MEDS ORDERED: CEFTRIAXONE 1G VIAL 1 GM in 0.9%NACL 50ML 50 ML IV SCH (09:00)
[2023-07-23] MEDS ORDERED: KCL 20 MEQ ERTAB PO ONE (12:30)
[2023-07-23] MEDS: ZOSYN 3.375GM +NS 50ML IVPB SCH ×2 (12:53→21:26)
[2023-07-23] MEDS: MAGNESIUM 2GM PREMIX 50ML 50 ML IV SCH (12:54)
[2023-07-23 13:14] LABS: INR 1.03 (0.85-1.15); PROTHROMBIN TIME 11.9 SEC (9.6-11.6)
[2023-07-23] MEDS: PYRIDOXINE HCL PO SCH (21:00)
[2023-07-23] MEDS: MELATONIN PO SCH (21:00)
[2023-07-23] MEDS ORDERED: KCL 20 MEQ ERTAB PO PRN ×2 (21:00→22:30)
[2023-07-23] MEDS ORDERED: POTASSIUM CHLORIDE 10% ELIXIR 20 MEQ/15 ML UDCUP ONE (21:20)
[2023-07-23] MEDS: APIXABAN 5 MG TABLET PO SCH (21:27)
[2023-07-23] MEDS ORDERED: POTASSIUM CHLORIDE 10% ELIXIR 20 MEQ/15 ML UDCUP PO PRN (22:30)
[2023-07-24] VITALS (13 sets, daily range): BP systolic 106–116; BP diastolic 63–69; PULSE 69–110; RESP 16–20; O2SAT 96–100
[2023-07-24] MEDS ORDERED: CEFTRIAXONE 1G VIAL 1 GM in 0.9%NACL 50ML 50 ML IV SCH (00:30)
[2023-07-24] MEDS ORDERED: CEFTRIAXONE 1G VIAL IVPB SCH (01:00)
[2023-07-24 01:01] LABS: APPEARANCE,URINE CLEAR (CLEAR); BILIRUBIN,URINE NEGATIVE (NEGATIVE); COLOR,URINE YELLOW (YELLOW); GLUCOSE, URINE (UA) 30 mg/dL (NEGATIVE); KETONES,URINE 5 mg/dL (NEGATIVE); LEUKOCYTE ESTERASE ,URINE 250 Leu/uL (NEGATIVE); NITRATE,URINE NEGATIVE (NEGATIVE); OCCULT BLOOD,URINE MODERATE (NEGATIVE); PH,URINE 5.5 (5.0-8.0); PROTEIN,URINE 50 mg/dL (NEGATIVE)
[2023-07-24 01:03] LABS: ADD UA MICROSCOPIC YES
[2023-07-24 01:07] LABS: MUCUS,URINE RARE LPF (None Seen); WBC,URINE 26-50 /HPF (0-1)
[2023-07-24] MEDS: ZOSYN 3.375GM +NS 50ML IVPB SCH ×3 (03:35→21:19)
[2023-07-24 04:59] LABS: BASOPHILS # (AUTO) 0.02 K/uL (0.00-0.20); BASOPHILS % (AUTO) 0.2 % (0.0-5.0); EOSINOPHILS # (AUTO) 0.12 K/uL (0.00-0.70); EOSINOPHILS % (AUTO) 1.3 % (0.0-8.0); HEMATOCRIT 29.1 % (42-54); IMMATURE GRANULOCYTE ABSOLUTE 0.04 K/uL (0-1); LYMPHOCYTES # (AUTO) 0.8 K/uL (1.0-4.8); LYMPHOCYTES % (AUTO) 8.4 % (21.0-51.0); MEAN CORPUSCULAR HEMOGLOBIN 28.3 pg (27.0-33.0); MEAN CORPUSCULAR HGB CONC 31.6 g/dL (32.0-36.0); MEAN CORPUSCULAR VOLUME 89.5 fL (79-99); MONOCYTES # (AUTO) 0.6 K/uL (0.1-1.0); MONOCYTES % (AUTO) 5.8 % (3.0-13.0); NEUTROPHILS % (AUTO) 83.9 % (40.0-77.0); PLATELET COUNT (AUTO) 108 K/uL (130-400); RED BLOOD CELL COUNT(AUTO) 3.25 MIL/uL (4.50-6.20); RED CELL DISTRIBUTION WIDTH 19.2 % (11.0-15.5); WHITE BLOOD COUNT (AUTO) 9.5 K/uL (4.8-10.8)
[2023-07-24 05:15] LABS: ALBUMIN 1.6 g/dL (3.5-5.0); BILIRUBIN,TOTAL 0.9 mg/dL (0.2-1.0); CREATININE 0.6 mg/dL (0.5-1.5); POTASSIUM 3.8 mmol/L (3.5-5.1); TOTAL PROTEIN, SERUM 5.5 g/dL (6.0-8.3)
[2023-07-24] MEDS: POTASSIUM CHLORIDE 10% ELIXIR 20 MEQ/15 ML UDCUP PO PRN (05:59)
[2023-07-24] MEDS: ALBUTEROL 0.083% 2.5 MG/3 ML INH IH SCH ×4 (06:32→23:14)
[2023-07-24] MEDS ORDERED: M.V.I. IV [ADULT] 10 ML, FOLIC ACID 1 MG, THIAMINE HCL 100 MG in 0.9%NACL 1000ML 1,000 ML IV SCH (09:00)
[2023-07-24] MEDS: FAMOTIDINE 20MG TAB PO SCH ×2 (09:31→21:20)
[2023-07-24] MEDS: APIXABAN 5 MG TABLET PO SCH ×2 (09:31→21:20)
[2023-07-24] MEDS ORDERED: COMPOUND IV REFRIGERATED 1 EACH IVSOLN MISC PRN (18:30)
[2023-07-24] MEDS: PYRIDOXINE HCL PO SCH (21:00)
[2023-07-24] MEDS: MELATONIN PO SCH (21:00)
[2023-07-24] MEDS: M.V.I. IV [ADULT] 10 ML, FOLIC ACID 1 MG, THIAMINE HCL 100 MG in 0.9%NACL 1000ML 1,000 ML IV SCH (21:20)
[2023-07-25] VITALS (14 sets, daily range): BP systolic 114–133; BP diastolic 62–98; PULSE 68–106; RESP 16–21; O2SAT 96–98
[2023-07-25 03:51] LABS: HEMATOCRIT 29.5 % (42-54); MEAN CORPUSCULAR HEMOGLOBIN 27.7 pg (27.0-33.0); MEAN CORPUSCULAR HGB CONC 31.2 g/dL (32.0-36.0); MEAN CORPUSCULAR VOLUME 88.9 fL (79-99); RED BLOOD CELL COUNT(AUTO) 3.32 MIL/uL (4.50-6.20); WHITE BLOOD COUNT (AUTO) 8.1 K/uL (4.8-10.8)
[2023-07-25] MEDS: ZOSYN 3.375GM +NS 50ML IVPB SCH ×3 (03:59→21:40)
[2023-07-25 04:14] LABS: ALBUMIN 1.6 g/dL (3.5-5.0); BILIRUBIN,TOTAL 0.9 mg/dL (0.2-1.0); CREATININE 0.6 mg/dL (0.5-1.5); MAGNESIUM 1.8 mg/dL (1.80-2.40); POTASSIUM 3.9 mmol/L (3.5-5.1); TOTAL PROTEIN, SERUM 5.6 g/dL (6.0-8.3)
[2023-07-25] MEDS: MAGNESIUM 2GM PREMIX 50ML 50 ML IV SCH (04:33)
[2023-07-25] MEDS: ALBUTEROL 0.083% 2.5 MG/3 ML INH IH SCH ×4 (07:11→23:51)
[2023-07-25] MEDS: FAMOTIDINE 20MG TAB PO SCH ×2 (11:29→21:40)
[2023-07-25] MEDS: APIXABAN 5 MG TABLET PO SCH ×2 (11:29→21:40)
[2023-07-25] MEDS: M.V.I. IV [ADULT] 10 ML, FOLIC ACID 1 MG, THIAMINE HCL 100 MG in 0.9%NACL 1000ML 1,000 ML IV SCH (18:16)
[2023-07-25] MEDS ORDERED: FUROSEMIDE 20MG VIAL IV ONE (18:40)
[2023-07-25] MEDS: PYRIDOXINE HCL PO SCH (20:18)
[2023-07-25] MEDS: MELATONIN PO SCH (20:18)
[2023-07-26] VITALS (11 sets, daily range): BP systolic 108–137; BP diastolic 57–81; PULSE 64–122; RESP 14–22; O2SAT 100
[2023-07-26 03:48] LABS: HEMATOCRIT 30.9 % (42-54); MEAN CORPUSCULAR HGB CONC 31.1 g/dL (32.0-36.0); MEAN CORPUSCULAR VOLUME 90.1 fL (79-99); RED BLOOD CELL COUNT(AUTO) 3.43 MIL/uL (4.50-6.20); RED CELL DISTRIBUTION WIDTH 19.1 % (11.0-15.5); WHITE BLOOD COUNT (AUTO) 8.6 K/uL (4.8-10.8)
[2023-07-26] MEDS ORDERED: HALOPERIDOL INJ 5 MG/ML VIAL IM SCH (04:00)
[2023-07-26] MEDS: ZOSYN 3.375GM +NS 50ML IVPB SCH ×3 (04:01→22:25)
[2023-07-26 04:06] LABS: ALBUMIN 1.8 g/dL (3.5-5.0); BILIRUBIN,DIRECT 0.4 mg/dL (0.0-0.3); BILIRUBIN,TOTAL 1.3 mg/dL (0.2-1.0); CREATININE 0.6 mg/dL (0.5-1.5); MAGNESIUM 1.9 mg/dL (1.80-2.40); POTASSIUM 3.8 mmol/L (3.5-5.1); TOTAL PROTEIN, SERUM 6.2 g/dL (6.0-8.3)
[2023-07-26] MEDS: ALBUTEROL 0.083% 2.5 MG/3 ML INH IH SCH ×3 (06:33→20:05)
[2023-07-26] MEDS: FAMOTIDINE 20MG TAB PO SCH ×2 (11:15→22:25)
[2023-07-26] MEDS: APIXABAN 5 MG TABLET PO SCH ×2 (11:20→22:28)
[2023-07-26] MEDS ORDERED: FUROSEMIDE 40MG VIAL IV ONE (15:30)
[2023-07-26 15:43] LABS: ABG BASE EXCESS 6.4 mmol/L (-2.0-3.0); ABG HCO3 31.6 mmol/L (21.0-28.0); ABG OXYGEN SATURATION 95.4 % (95.0-99.0); ABG PCO2 49 mmHg (35-48); ABG PH 7.431 (7.35-7.450); CARBON MONOXIDE 0.9; DEVICE COMMENT LR; HHb 4.5; PO2, ARTERIAL BG 82.2 mmHg (83.0-108.0); VENT MODE, BG NC (ROOM AIR)
[2023-07-26] MEDS: BALSAM PERU/CASTOR OIL 60 GM TUBE TP SCH (21:00)
[2023-07-26] MEDS: FUROSEMIDE 40MG VIAL IV SCH (22:25)
[2023-07-27] VITALS (16 sets, daily range): BP systolic 94–116; BP diastolic 44–83; PULSE 70–123; RESP 16–21; O2SAT 98–100
[2023-07-27] MEDS: ALBUTEROL 0.083% 2.5 MG/3 ML INH IH SCH ×5 (00:31→23:27)
[2023-07-27] MEDS: ZOSYN 3.375GM +NS 50ML IVPB SCH (04:51)
[2023-07-27 06:18] LABS: ALBUMIN 1.7 g/dL (3.5-5.0); BILIRUBIN,TOTAL 1.4 mg/dL (0.2-1.0); CREATININE 0.6 mg/dL (0.5-1.5); TOTAL PROTEIN, SERUM 5.5 g/dL (6.0-8.3)
[2023-07-27 07:01] LABS: BASOPHILS # (AUTO) 0.01 K/uL (0.00-0.20); BASOPHILS % (AUTO) 0.1 % (0.0-5.0); EOSINOPHILS # (AUTO) 0.14 K/uL (0.00-0.70); HEMATOCRIT 29.1 % (42-54); IMMATURE GRANULOCYTE ABSOLUTE 0.03 K/uL (0-1); LYMPHOCYTES # (AUTO) 0.7 K/uL (1.0-4.8); LYMPHOCYTES % (AUTO) 10.1 % (21.0-51.0); MEAN CORPUSCULAR HEMOGLOBIN 27.8 pg (27.0-33.0); MEAN CORPUSCULAR HGB CONC 31.3 g/dL (32.0-36.0); MONOCYTES # (AUTO) 0.4 K/uL (0.1-1.0); MONOCYTES % (AUTO) 5.7 % (3.0-13.0); NEUTROPHILS # (AUTO) 5.6 K/uL (1.8-7.7); NEUTROPHILS % (AUTO) 81.7 % (40.0-77.0); PLATELET COUNT (AUTO) 143 K/uL (130-400); RED BLOOD CELL COUNT(AUTO) 3.27 MIL/uL (4.50-6.20); RED CELL DISTRIBUTION WIDTH 18.7 % (11.0-15.5); WHITE BLOOD COUNT (AUTO) 6.8 K/uL (4.8-10.8)
[2023-07-27] MEDS ORDERED: FUROSEMIDE 40MG VIAL IV SCH ×2 (09:00→11:30)
[2023-07-27] MEDS: FUROSEMIDE 40MG VIAL IV SCH ×3 (09:29→23:32)
[2023-07-27] MEDS: APIXABAN 5 MG TABLET PO SCH ×2 (09:29→21:02)
[2023-07-27] MEDS: FAMOTIDINE 20MG TAB PO SCH ×2 (09:29→21:02)
[2023-07-27] MEDS: BALSAM PERU/CASTOR OIL 60 GM TUBE TP SCH ×2 (09:36→21:06)
[2023-07-27] MEDS ORDERED: VANCOMYCIN PROTOCOL PER PHARMACY IV SCH (11:00)
[2023-07-27] MEDS ORDERED: COMPOUND IV MISC 1 EACH IVSOLN MISC PRN (11:30)
[2023-07-27] MEDS: MEROPENEM 1 GM in 0.9%NACL 100ML 100 ML IVPB SCH ×2 (12:04→18:06)
[2023-07-27] MEDS: DEXAMETHASONE SOD PHOSPHATE 4 MG/ML 1ML VIAL IV SCH (12:05)
[2023-07-27] MEDS: ACETYLCYSTEINE 10% 100MG/ML 4ML VIAL IH SCH ×2 (12:27→19:05)
[2023-07-27] MEDS: LEVOFLOXACIN 500 MG/D5W 100 ML 100 ML IV SCH (14:26)
[2023-07-27] MEDS ORDERED: VANCOMYCIN 1.5 GM/250 ML BAG 250 ML IV ONE (15:00)
[2023-07-27] MEDS: MELATONIN PO SCH (21:00)
[2023-07-27] MEDS: PYRIDOXINE HCL PO SCH (21:00)
[2023-07-28] VITALS (13 sets, daily range): BP systolic 99–139; BP diastolic 52–91; PULSE 18–114; RESP 17–20; O2SAT 98–100
[2023-07-28] MEDS: MEROPENEM 1 GM in 0.9%NACL 100ML 100 ML IVPB SCH ×3 (03:00→19:00)
[2023-07-28 03:30] LABS: ABG BASE EXCESS 7.7 mmol/L (-2.0-3.0); ABG HCO3 31.4 mmol/L (21.0-28.0); ABG OXYGEN SATURATION 98.4 % (95.0-99.0); ABG PCO2 40 mmHg (35-48); PO2, ARTERIAL BG 110.3 mmHg (83.0-108.0)
[2023-07-28 05:15] LABS: MEAN CORPUSCULAR HEMOGLOBIN 27.6 pg (27.0-33.0); MEAN CORPUSCULAR VOLUME 89.1 fL (79-99); RED BLOOD CELL COUNT(AUTO) 3.48 MIL/uL (4.50-6.20); RED CELL DISTRIBUTION WIDTH 18.7 % (11.0-15.5); WHITE BLOOD COUNT (AUTO) 11.5 K/uL (4.8-10.8)
[2023-07-28 05:28] LABS: BILIRUBIN,DIRECT 0.4 mg/dL (0.0-0.3); BILIRUBIN,TOTAL 1.1 mg/dL (0.2-1.0); CREATININE 1.3 mg/dL (0.5-1.5); MAGNESIUM 1.7 mg/dL (1.80-2.40); POTASSIUM 3.5 mmol/L (3.5-5.1); TOTAL PROTEIN, SERUM 5.9 g/dL (6.0-8.3)
[2023-07-28] MEDS: FUROSEMIDE 40MG VIAL IV SCH (05:49)
[2023-07-28] MEDS: POTASSIUM CHLORIDE 10% ELIXIR 20 MEQ/15 ML UDCUP PO PRN (05:50)
[2023-07-28] MEDS: ALBUTEROL 0.083% 2.5 MG/3 ML INH IH SCH ×4 (06:23→22:47)
[2023-07-28] MEDS: ACETYLCYSTEINE 10% 100MG/ML 4ML VIAL IH SCH ×2 (06:23→22:47)
[2023-07-28] MEDS ORDERED: VANCOMYCIN 1G/250ML KIT 250 ML IV SCH ×2 (08:00→15:00)
[2023-07-28] MEDS ORDERED: MAGNESIUM 2GM PREMIX 50ML 50 ML IV SCH (08:30)
[2023-07-28] MEDS: FAMOTIDINE 20MG TAB PO SCH ×2 (09:44→20:15)
[2023-07-28] MEDS: APIXABAN 5 MG TABLET PO SCH ×2 (09:44→20:14)
[2023-07-28] MEDS: BALSAM PERU/CASTOR OIL 60 GM TUBE TP SCH ×2 (09:50→20:23)
[2023-07-28] MEDS: POTASSIUM CHLORIDE 20 MEQ/100 ML BAG IV SCH (09:50)
[2023-07-28] MEDS: DEXAMETHASONE SOD PHOSPHATE 4 MG/ML 1ML VIAL IV SCH (12:45)
[2023-07-28] MEDS ORDERED: VANCOMYCIN 750MG VIAL IVPB SCH (15:00)
[2023-07-28] MEDS: LEVOFLOXACIN 500 MG/D5W 100 ML 100 ML IV SCH (15:33)
[2023-07-28] MEDS: PYRIDOXINE HCL PO SCH (20:15)
[2023-07-28] MEDS: MONTELUKAST SODIUM 10 MG TAB PO SCH (20:15)
[2023-07-28] MEDS: MELATONIN PO SCH (20:15)
[2023-07-29] VITALS (14 sets, daily range): BP systolic 104–134; BP diastolic 53–68; PULSE 65–116; RESP 17–20; O2SAT 93–99
[2023-07-29] MEDS: MEROPENEM 1 GM in 0.9%NACL 100ML 100 ML IVPB SCH ×3 (03:34→21:00)
[2023-07-29 03:38] LABS: HEMATOCRIT 28.2 % (42-54); MEAN CORPUSCULAR HEMOGLOBIN 28.2 pg (27.0-33.0); MEAN CORPUSCULAR HGB CONC 31.9 g/dL (32.0-36.0); MEAN CORPUSCULAR VOLUME 88.4 fL (79-99); RED BLOOD CELL COUNT(AUTO) 3.19 MIL/uL (4.50-6.20); RED CELL DISTRIBUTION WIDTH 18.9 % (11.0-15.5); WHITE BLOOD COUNT (AUTO) 11.9 K/uL (4.8-10.8)
[2023-07-29 03:58] LABS: ALBUMIN 1.9 g/dL (3.5-5.0); BILIRUBIN,TOTAL 0.9 mg/dL (0.2-1.0); MAGNESIUM 2.7 mg/dL (1.80-2.40); POTASSIUM 3.7 mmol/L (3.5-5.1); TOTAL PROTEIN, SERUM 5.7 g/dL (6.0-8.3)
[2023-07-29] MEDS: POTASSIUM CHLORIDE 10% ELIXIR 20 MEQ/15 ML UDCUP PO PRN (04:14)
[2023-07-29] MEDS: ACETYLCYSTEINE 10% 100MG/ML 4ML VIAL IH SCH ×2 (06:55→23:09)
[2023-07-29] MEDS: ALBUTEROL 0.083% 2.5 MG/3 ML INH IH SCH ×4 (06:55→23:09)
[2023-07-29] MEDS ORDERED: FUROSEMIDE 40MG VIAL IV SCH (09:00)
[2023-07-29] MEDS: POTASSIUM CHLORIDE 20 MEQ/100 ML BAG IV SCH (09:50)
[2023-07-29] MEDS: APIXABAN 5 MG TABLET PO SCH ×2 (09:52→21:01)
[2023-07-29] MEDS: FAMOTIDINE 20MG TAB PO SCH ×2 (09:52→21:01)
[2023-07-29] MEDS ORDERED: GLUCAGON 1MG KIT 1 MG ML IM PRN (11:30)
[2023-07-29] MEDS ORDERED: DEXTROSE 50%-WATER 50 ML DISP.SYRIN IV PRN (11:30)
[2023-07-29] MEDS: DEXAMETHASONE SOD PHOSPHATE 4 MG/ML 1ML VIAL IV SCH (12:07)
[2023-07-29] MEDS: DOXYCYCLINE 100MG+NS 250ML IV SCH ×2 (12:07→23:40)
[2023-07-29] MEDS: BALSAM PERU/CASTOR OIL 60 GM TUBE TP SCH ×2 (12:28→21:02)
[2023-07-29] MEDS: INSULIN HUMULIN R 100 UNIT/ML 3ML SQ SCH ×3 (12:43→21:16)
[2023-07-29] MEDS: INSULIN GLARGINE 100 UNITS/ML 10 ML VIAL SQ SCH ×2 (12:44→21:17)
[2023-07-29 13:59] LABS: % IRON SATURATION 10.2 % (30-44)
[2023-07-29] MEDS: LEVOFLOXACIN 500 MG/D5W 100 ML 100 ML IV SCH (14:25)
[2023-07-29] MEDS: PYRIDOXINE HCL PO SCH (20:50)
[2023-07-29] MEDS: MELATONIN PO SCH (20:50)
[2023-07-29] MEDS: MONTELUKAST SODIUM 10 MG TAB PO SCH (21:01)
[2023-07-30] VITALS (13 sets, daily range): BP systolic 100–141; BP diastolic 57–83; PULSE 50–114; RESP 17–24; O2SAT 95–98
[2023-07-30 03:47] LABS: HEMATOCRIT 28.1 % (42-54); MEAN CORPUSCULAR HEMOGLOBIN 27.5 pg (27.0-33.0); MEAN CORPUSCULAR VOLUME 88.9 fL (79-99); PLATELET COUNT (AUTO) 180 K/uL (130-400); RED BLOOD CELL COUNT(AUTO) 3.16 MIL/uL (4.50-6.20); RED CELL DISTRIBUTION WIDTH 18.7 % (11.0-15.5); WHITE BLOOD COUNT (AUTO) 13.4 K/uL (4.8-10.8)
[2023-07-30 04:25] LABS: ALBUMIN 1.8 g/dL (3.5-5.0); BILIRUBIN,DIRECT 0.2 mg/dL (0.0-0.3); BILIRUBIN,TOTAL 0.8 mg/dL (0.2-1.0); CREATININE 2.5 mg/dL (0.5-1.5); MAGNESIUM 2.5 mg/dL (1.80-2.40); PHOSPHORUS 4.1 mg/dL (2.5-4.9); POTASSIUM 4.1 mmol/L (3.5-5.1); TOTAL PROTEIN, SERUM 5.8 g/dL (6.0-8.3); URIC ACID 4.4 mg/dL (2.6-7.2)
[2023-07-30] MEDS: MEROPENEM 1 GM in 0.9%NACL 100ML 100 ML IVPB SCH ×3 (04:37→20:00)
[2023-07-30 05:18] LABS: BAND NEUTROPHILS % (MANUAL) 4 % (0-2); LYMPHOCYTES % (MANUAL) 8 % (22-44); MAN.DIFF COMMENT-IMPRESSION MANUAL DIFFERENTIAL; MONOCYTES % (MANUAL) 3 % (2-9); PLATELET MORPHOLOGY COMMENT ADEQUATE; REACTIVE LYMPHOCYTES 1 % (0-0); SEGMENTED NEUTROPHILS % 84 % (40-70); TOTAL CELLS COUNTED 100
[2023-07-30] MEDS: INSULIN HUMULIN R 100 UNIT/ML 3ML SQ SCH ×4 (05:44→23:23)
[2023-07-30] MEDS: INSULIN GLARGINE 100 UNITS/ML 10 ML VIAL SQ SCH ×2 (05:44→23:24)
[2023-07-30] MEDS: ALBUTEROL 0.083% 2.5 MG/3 ML INH IH SCH ×2 (07:14→11:58)
[2023-07-30] MEDS: ACETYLCYSTEINE 10% 100MG/ML 4ML VIAL IH SCH ×2 (07:14→19:12)
[2023-07-30] MEDS: POTASSIUM CHLORIDE 20 MEQ/100 ML BAG IV SCH (08:30)
[2023-07-30] MEDS: BALSAM PERU/CASTOR OIL 60 GM TUBE TP SCH ×2 (09:03→23:28)
[2023-07-30] MEDS: APIXABAN 5 MG TABLET PO SCH ×2 (09:06→20:51)
[2023-07-30] MEDS: FAMOTIDINE 20MG TAB PO SCH ×2 (09:06→20:51)
[2023-07-30] MEDS: DEXAMETHASONE SOD PHOSPHATE 4 MG/ML 1ML VIAL IV SCH (12:17)
[2023-07-30] MEDS: DOXYCYCLINE 100MG+NS 250ML IV SCH ×2 (12:17→23:26)
[2023-07-30] MEDS ORDERED: IRON SUCROSE COMPLEX 100 MG/5 ML VIAL IVP SCH (13:00)
[2023-07-30] MEDS ORDERED: IRON SUCROSE COMPLEX IVP SCH (13:00)
[2023-07-30] MEDS ORDERED: NACL 0.9% IVP SCH (13:00)
[2023-07-30] MEDS: LACTATED RINGERS 1000ML IV SCH (13:41)
[2023-07-30] MEDS: LEVOFLOXACIN 500 MG/D5W 100 ML 100 ML IV SCH (15:13)
[2023-07-30] MEDS: IRON SUCROSE COMPLEX 300 MG in 0.9% NACL 250ML 250 ML IVP SCH (15:14)
[2023-07-30] MEDS: IPRATROPIUM 0.5 MG/2.5 ML INH IH SCH ×2 (19:12→23:37)
[2023-07-30] MEDS: MONTELUKAST SODIUM 10 MG TAB PO SCH (20:51)
[2023-07-30] MEDS: PYRIDOXINE HCL PO SCH (21:00)
[2023-07-30] MEDS: MELATONIN PO SCH (21:00)
[2023-07-31] VITALS (16 sets, daily range): BP systolic 108–133; BP diastolic 48–86; PULSE 73–112; RESP 18–24; O2SAT 95–100
[2023-07-31 03:56] LABS: HEMATOCRIT 27.4 % (42-54); MEAN CORPUSCULAR HEMOGLOBIN 27.7 pg (27.0-33.0); MEAN CORPUSCULAR VOLUME 89.3 fL (79-99); RED BLOOD CELL COUNT(AUTO) 3.07 MIL/uL (4.50-6.20); RED CELL DISTRIBUTION WIDTH 18.6 % (11.0-15.5); WHITE BLOOD COUNT (AUTO) 9.9 K/uL (4.8-10.8)
[2023-07-31 04:11] LABS: INR 1.13 (0.85-1.15)
[2023-07-31 04:18] LABS: ALBUMIN 1.7 g/dL (3.5-5.0); BILIRUBIN,DIRECT 0.3 mg/dL (0.0-0.3); BILIRUBIN,TOTAL 0.6 mg/dL (0.2-1.0); CREATININE 2.6 mg/dL (0.5-1.5); MAGNESIUM 2.3 mg/dL (1.80-2.40); POTASSIUM 4.1 mmol/L (3.5-5.1); TOTAL PROTEIN, SERUM 5.3 g/dL (6.0-8.3)
[2023-07-31] MEDS: INSULIN GLARGINE 100 UNITS/ML 10 ML VIAL SQ SCH ×2 (06:32→21:00)
[2023-07-31] MEDS: INSULIN HUMULIN R 100 UNIT/ML 3ML SQ SCH ×4 (06:33→21:00)
[2023-07-31] MEDS: IPRATROPIUM 0.5 MG/2.5 ML INH IH SCH ×4 (07:20→23:46)
[2023-07-31] MEDS: POTASSIUM CHLORIDE 20 MEQ/100 ML BAG IV SCH (07:20)
[2023-07-31] MEDS: LACTATED RINGERS 1000ML IV SCH (07:21)
[2023-07-31] MEDS: MEROPENEM 1 GM in 0.9%NACL 100ML 100 ML IVPB SCH ×2 (08:00→20:59)
[2023-07-31] MEDS: BALSAM PERU/CASTOR OIL 60 GM TUBE TP SCH ×2 (09:00→22:09)
[2023-07-31] MEDS: FAMOTIDINE 20MG TAB PO SCH ×2 (09:00→21:00)
[2023-07-31] MEDS: APIXABAN 5 MG TABLET PO SCH ×2 (09:00→21:00)
[2023-07-31] MEDS: DOXYCYCLINE 100MG+NS 250ML IV SCH ×2 (11:30→23:55)
[2023-07-31] MEDS: LEVOFLOXACIN 500 MG/D5W 100 ML 100 ML IV SCH (11:36)
[2023-07-31] MEDS: IRON SUCROSE COMPLEX 300 MG in 0.9% NACL 250ML 250 ML IVP SCH (11:36)
[2023-07-31] MEDS: DEXAMETHASONE SOD PHOSPHATE 4 MG/ML 1ML VIAL IV SCH (12:13)
[2023-07-31] MEDS: PYRIDOXINE HCL PO SCH (21:00)
[2023-07-31] MEDS: MELATONIN PO SCH (21:00)
[2023-07-31] MEDS: MONTELUKAST SODIUM 10 MG TAB PO SCH (21:00)
[2023-08-01] VITALS: BP 104/69; PULSE 109; RESP 18
[2023-08-01 03:00] VITALS: BP 111/76; PULSE 69; RESP 20
[2023-08-01 06:00] LABS: ALBUMIN 1.7 g/dL (3.5-5.0); BILIRUBIN,TOTAL 0.8 mg/dL (0.2-1.0); CREATININE 2.6 mg/dL (0.5-1.5); TOTAL PROTEIN, SERUM 5.5 g/dL (6.0-8.3)
[2023-08-01] MEDS: INSULIN GLARGINE 100 UNITS/ML 10 ML VIAL SQ SCH (06:34)
[2023-08-01] MEDS: INSULIN HUMULIN R 100 UNIT/ML 3ML SQ SCH (06:34)
[2023-08-01] MEDS: IPRATROPIUM 0.5 MG/2.5 ML INH IH SCH (06:47)
[2023-08-01 06:48] VITALS: PULSE 92; RESP 18
[2023-08-01 06:51] VITALS: PULSE 92; RESP 20; O2SAT 95
[2023-08-01] MEDS: POTASSIUM CHLORIDE 20 MEQ/100 ML BAG IV SCH (08:00)
[2023-08-01] MEDS: MEROPENEM 1 GM in 0.9%NACL 100ML 100 ML IVPB SCH (08:00)
[2023-08-01 08:53] VITALS: BP 123/89; PULSE 101; RESP 18
== END 2023-08-01 09:37 | disposition hospice, home (50) | DRG 871 ==
LOC: EDH 23:41 → EDHIP 07-23 02:00 → 4AH 07-23 11:00 → 2AH 07-26 18:36
PROVIDERS: ADMIT Hospitalist; ATTEND Hospitalist
PROC: 5A09357 Assistance with Respiratory Ventilation, Less than 24 Consecutive Hours, Continuous Positive Airway Pressure (ICD-10-PCS; principal; 2023-07-26)
PROC: 5A09357 Assistance with Respiratory Ventilation, Less than 24 Consecutive Hours, Continuous Positive Airway Pressure (ICD-10-PCS; 2023-07-27)
PROC: 5A09357 Assistance with Respiratory Ventilation, Less than 24 Consecutive Hours, Continuous Positive Airway Pressure (ICD-10-PCS; 2023-07-28)
DX: A41.9 Sepsis, unspecified organism (principal); E43 Unspecified severe protein-calorie malnutrition; L89.313 Pressure ulcer of right buttock, stage 3; J96.00 Acute respiratory failure, unspecified whether with hypoxia or hypercapnia; U07.1 COVID-19; J12.82 Pneumonia due to coronavirus disease 2019; J96.01 Acute respiratory failure with hypoxia; J96.02 Acute respiratory failure with hypercapnia; N17.0 Acute kidney failure with tubular necrosis; I50.22 Chronic systolic (congestive) heart failure; I13.0 Hypertensive heart and chronic kidney disease with heart failure and stage 1 through stage 4 chronic kidney disease, or unspecified chronic kidney disease; I69.351 Hemiplegia and hemiparesis following cerebral infarction affecting right dominant side; J44.0 Chronic obstructive pulmonary disease with (acute) lower respiratory infection; J98.11 Atelectasis; N30.00 Acute cystitis without hematuria; Z16.24 Resistance to multiple antibiotics; Z16.12 Extended spectrum beta lactamase (ESBL) resistance; J44.9 Chronic obstructive pulmonary disease, unspecified; I48.91 Unspecified atrial fibrillation; I11.0 Hypertensive heart disease with heart failure; F03.90 Unspecified dementia, unspecified severity, without behavioral disturbance, psychotic disturbance, mood disturbance, and anxiety; E11.9 Type 2 diabetes mellitus without complications; B96.20 Unspecified Escherichia coli [E. coli] as the cause of diseases classified elsewhere; D64.9 Anemia, unspecified; E11.22 Type 2 diabetes mellitus with diabetic chronic kidney disease; E78.2 Mixed hyperlipidemia; L89.152 Pressure ulcer of sacral region, stage 2; L89.620 Pressure ulcer of left heel, unstageable; R62.7 Adult failure to thrive; I05.8 Other rheumatic mitral valve diseases; I05.0 Rheumatic mitral stenosis; E87.6 Hypokalemia; E86.0 Dehydration; K21.9 Gastro-esophageal reflux disease without esophagitis; N18.9 Chronic kidney disease, unspecified; Z83.3 Family history of diabetes mellitus; Z82.49 Family history of ischemic heart disease and other diseases of the circulatory system; Z78.9 Other specified health status; Z74.01 Bed confinement status; Z51.5 Encounter for palliative care; Z68.22 Body mass index [BMI] 22.0-22.9, adult
CPT/HCPCS: 36415; 36600; 70450; 71045; 71250; 76770; 80048; 80053; 80076; 81001; 82306; 82435; 82728; 82803; 82947; 82948; 83540; 83550; 83605; 83735; 83880; 84100; 84132; 84145; 84295; 84550; 85018; 85025; 85027; 85610; 86140; 87040; 87070; 87076; 87077; 87088; 87186; 87635; 87804; 93306; 94640; 94660; 94664; 97039; C9803; G0378; J0696; J1100; J1630; J1756; J1815; J1940; J1956; J2185; J2543; J3411; J3475; J3480; J3490; J7030; J7050; J7070; J7608; J3370